=== PATIENT | female | born 1975 | race Asian ===

== ENCOUNTER 2018-01-21 09:29 | Outpatient (CLI) | payer OTHER ==
--- NOTE | 2018-01-21 14:39 | Diagnostic Imaging Report ---
Indication: Hepatitis C. Abdominal pain Technique: Grayscale and duplex Doppler imaging of the abdomen performed. Comparison: None Findings: The liver is echogenic. The gallbladder is unremarkable. The demonstrated part of the pancreas, aorta and IVC show no abnormalities. There is a cyst in the left kidney measuring 6 mm. CBD is 3.6 mm. The spleen is normal in size. There is no biliary ductal dilatation identified. Doppler evaluation of the main portal vein shows patency. There is no ascites. No hydronephrosis seen. Impression: Fatty liver Left renal cyst
== END 2018-01-21 11:29 | disposition home or self-care (01) ==
LOC: RAD 09:29
DX: B18.2 Chronic viral hepatitis C (principal); K76.0 Fatty (change of) liver, not elsewhere classified; N28.1 Cyst of kidney, acquired
CPT/HCPCS: 76700